=== PATIENT | female | born 1985 | race Caucasian/White ===

== ENCOUNTER 2025-02-08 07:16 | Outpatient (REF) | payer MEDICAID, SELFPAY ==
[2025-02-08 13:28] LABS: MANUAL DIFF FLAG NO
[2025-02-08 13:47] LABS: Hematocrit 36.4 % (37.0-47.0); Hemoglobin 11.9 g/dl (12.0-16.0); Imm Gran Abs Auto 0.03 X10*3/uL (0.00-0.03); Imm Gran Pct Auto 0.4 % (0.0-0.4); Lymphocytes Absolute Auto 2.2 X10*3/uL (1.2-4.9); Mean Corpuscular HGB Conc 32.7 g/dl (31.0-35.0); Mean Corpuscular Hemoglobin 29.2 pg (27.0-33.0); Mean Corpuscular Volume 89.4 fL (80.0-98.0); NRBC Abs Auto 0.000 X10*3/uL (0.0-0.012); NRBC Pct Auto 0.0 /100WBC (0.0-0.2); Platelet Count 304 X10*3/uL (160-400); Red Blood Count 4.07 X10*6/uL (4.20-5.50); White Blood Count 6.8 X10*3/uL (4.8-10.8)
[2025-02-08 14:11] LABS: Alanine Aminotransferase 20 U/L (0-31); Albumin Level 4.0 g/dL (3.5-5.0); Alkaline Phosphatase 42 U/L (39-117); Anion Gap 12 (12-20); Aspartate Amino Transferase 24 U/L (5-31); Blood Urea Nitrogen 16 mg/dL (9-16); Calcium 9.3 mg/dL (8.4-10.2); Carbon Dioxide 26 mmol/L (22-29); Chloride 108 mmol/L (96-108); Estimated Glomerular Filt Rate > 60; Ferritin 31 ng/mL (10-250); Potassium 4.8 mmol/L (3.3-5.1); Sodium 141 mmol/L (135-145); Total Protein 7.1 g/dL (6.5-8.0)
[2025-02-08 14:26] LABS: Folate 10.7 ng/mL (> or = 4.0); Vitamin B12 224 pg/mL (200-900)
[2025-02-09 10:44] LABS: Anti Nuclear Antibody Screen NEGATIVE (NEGATIVE)
[2025-02-13 12:33] LABS: CK-BB None Detected (None Detected); CK-MB 0 % (<5); CK-MM 100 % (95-100); Creatine Kinase,Total,Serum 26 U/L (20-239); Vitamin D 25-OH, D2 <4 ng/mL; Vitamin D 25-OH, D3 17 ng/mL; Vitamin D 25-OH, Total 17 ng/mL (30-100)
== END 2025-02-08 07:17 | disposition home or self-care (01) ==
LOC: HO.HKASLDS 07:16
PROVIDERS: PCP Physician Assistant Medical; Visit Provider Psychiatry & Neurology Neurology
DX: M62.838 Other muscle spasm (principal); G47.10 Hypersomnia, unspecified; R06.83 Snoring
CPT/HCPCS: 36415; 80053; 82306; 82552; 82607; 82728; 82746; 84443; 85025; 85652; 86038; 99202

== ENCOUNTER 2025-02-08 07:16 | Outpatient (AMB) | payer MEDICAID, SELFPAY ==
--- OUTSIDE RECORDS SUMMARY | 2025-02-08 07:18 | XMS_ITS | Clinical Summary ---
Author Organization [facility] Address [address] [place] [address] Care Team Providers Care Waxer Name Role Phone Unavailable Primary Care Provider Unavailabl e Encounters Date Type Department Care Team Description 12/12/2024 Population Health Risk Score [facility] (C3) Department [address] [facility] [address] [place] [address] Provider, Population Health Generic from Last 3 Months Social History Tobacco Use Types Packs/Day Years Used Date Smoking Tobacco: Never Assessed Comments Unknown Sex and Gender Information Value Date Recorded Sex Assigned at Not on file Legal Sex Female 9:32 PM EDT Gender Identity Not on file Sexual Orientation Not on file Plan of Treatment Health Maintenance Due Date Last Done Comments Depression Screening 1984 Lipid Panel 1984 SDOH Screening 1984 Disability Screening 1984 Alcohol/Substance Use Screening 1996 Tobacco Screening 1996 Family Planning (PISQ) 10/26/1999 HPV Vaccines (1 - 3-dose series) 10/26/1999 Hepatitis C Screening 2002 Pap Smear 2005 Cervical Cancer Screening 2014 HPV/Cotest 2014 Mammogram 2024 COVID-19 Vaccine ( - 2023-2 5 season) 2025 Influenza Vaccine (#1) 2025 DTaP/Tdap/Td Vaccines (2 - T d or Tdap) 03/26/2032 03/26/2022 Zoster Vaccines (1 of 2) 2034 RSV Patients and Patients Aged 60 years or older (1 - 1-dose 75+ series) 10/26/2059 HIV Screening Completed 01/02/2019 Hepatitis B Vaccines Completed 03/26/2022, 04/23/2017, 08/27/2016 HIB Vaccines Aged Out No longer eligi ble based on patient's age to complete this topic Hepatitis A Vaccines Aged Out No long er eligible based on patient's age to complete this topic IPV Vaccines Aged Out No longer eligi ble based on patient's age to complete this topic Meningococcal B Vaccine Aged Out No l onger eligible based on patient's age to complete this topic Meningococcal Vaccine Aged Out No sanjiv grant eligible based on patient's age to complete this topic Pneumococcal Vaccine: Pediatrics (0 to 5 Years) and At-Risk Patients (6 to 49) Years Aged Out No longer eligible b ased on patient's age to complete this topic RSV under 20 months Aged Out No longe r eligible based on patient's age to complete this topic Rotavirus Vaccines Aged Out No longer eligible based on patient's age to complete this topic
--- OUTSIDE RECORDS SUMMARY | 2025-02-08 07:18 | XMS_ITS | Clinical Summary ---
Author Organization [facility] Address [address] [place] [address] Care Team Providers Care Cutting Table Operator First Name Role Phone Henna Qureshi PA-C Primary Care Provider [phone] Source Comments PLEASE NOTE, if this patient is a minor, it may be UNLAWFUL to discuss sensitive information that is contained in these records (such as FAMILY PLANNING, MENTAL HEALTH or SUBSTANCE ABUSE) with the minor patient's parent or other person without the patient's specific authorization.[facility] Allergies No known active allergies Medications meclizine 25 mg chewable tabletIndication s:Dizziness Place 1 Tablet into mouth, chew and swallow 3 (three) times daily as needed for nausea 30 Tablet 1 2 Active diclofenac sodium (VOLTAREN) 1 % gelIndications:C hronic right-sided low back pain with right-sided sciatica,Acute bilateral low back pain without sciatica Apply 2 gm topically two to three times per day to affected area as needed for pain relief 100 g 1 2 Active cyclobenzaprine (FLEXERIL) 10 mg tabletIndication s:Degenerative disc disease, lumbar,Lumbar disc herniation Take 1 Tablet by mouth 3 (three) times daily as needed for muscle spasms 90 Tablet 2 Active docusate sodium (COLACE) 100 mg capsuleIndicatio ns:Alternating constipation and diarrhea Take 1 Capsule by mouth 2 (two) times daily 180 Capsule 3 Active polyethylene glycol, PEG, 3350 (GLYCOLAX) 17 gram/dose powderIndication s:Alternating constipation and diarrhea Take 17 g by mouth once daily as needed for other reason (constipation) 510 g 3 Active hydrocortisone 1 % creamIndications :Bleeding hemorrhoid Apply topically 2 (two) times daily 30 g 3 Active dicyclomine (BENTYL) 10 mg capsuleIndicatio ns:Abdominal bloating with cramps Take 1 Capsule by mouth 4 (four) times daily before meals and nightly 180 Capsule 1 3 Active docusate sodium (COLACE) 100 mg capsuleIndicatio ns:Alternating constipation and diarrhea Take 1 Capsule by mouth 2 (two) times daily as needed for constipation 180 Capsule 3 Active polyethylene glycol, PEG, 3350 (GLYCOLAX) 17 gram/dose powderIndication s:Alternating constipation and diarrhea Take 17 g by mouth once daily 510 g 3 Active ipratropium (ATROVENT) 42 mcg (0.06 %) nasal spray See Admin Instructions 3 Active medroxyPROGESTER one (DEPO-PROVERA) 150 mg/mL injection Inject 150 mg into the muscle every 3 (three) months 3 Active benzonatate (TESSALON) 200 mg capsuleIndicatio ns:Subacute cough Take 1 Capsule by mouth 3 (three) times daily as needed for cough 30 Capsule 4 Active methocarbamoL (ROBAXIN) 750 mg tabletIndication s:Muscle spasm Take 1 Tablet by mouth every evening 30 Tablet 4 Active ascorbic acid (VITAMIN C) 500 mg tabletIndication s:Iron deficiency Take 1 Tablet by mouth once daily 90 Tablet 1 4 Active pantoprazole (PROTONIX) 20 mg EC tablet TAKE 1 TABLET BY MOUTH EVERY DAY 90 Tablet 1 4 Active omeprazole (PRILOSEC) [address] capsuleIndicatio ns:Gastroesophag eal reflux disease without esophagitis TAKE 1 CAPSULE BY MOUTH EVERY DAY IN THE MORNING BEFORE BREAKFAST 90 Capsule 1 5 Active ferrous sulfate 325 mg (65 mg iron) tabletIndication s:Abnormal iron saturation TAKE 1 TABLET BY MOUTH ONCE DAILY WITH BREAKFAST 90 Tablet 1 5 Active ibuprofen 800 mg tabletIndication s:Chronic right-sided low back pain with right-sided sciatica,Acute bilateral low back pain without sciatica TAKE 1 TABLET BY MOUTH THREE TIMES A DAY NEEDED FOR PAIN 90 Tablet 1 5 Active phentermine (IONAMIN) 30 mg capsuleIndicatio ns:BMI 38.0-38.9,adult Take 1 Capsule by mouth every morning. Max Daily Amount: 30 mg 30 Capsule 5 Active Active Problems Problem Noted Date Diagnosed Date Severe obesity (CMS & HHS-HCC) 03/17/2024 Irregular bowel habits 03/17/2024 BRBPR (bright red blood per rectum) 03/17/2024 Degenerative disc disease, lumbar 03/26/2022 Lumbar disc herniation 03/26/2022 Anxiety and depression 03/19/2021 Psychophysiological insomnia 03/19/2021 Thyroid cyst 01/03/2020 Overview (01/03/2020): 12/2019: recent neck ultrasound showing an enlarged right thyroid lobe (in the upper limits of normal) and a tiny cyst in the left lobe. Ultrasound was ordered because pt reported 3 month hx of difficulty swallowing and sensation of constriction in her throat which causes SOB; also seen by ENT and s/p EGD on 12/19; referred to Endo Gastroesophageal reflux disease without esophagi tis 01/06/2019 Chronic right-sided low back pain with right-elsy ed sciatica 01/06/2019 Overview (11/17/2021): [facility] 11/03/21: PT referral and follow up in 3 months Obesity (BMI 30.0-34.9) 10/08/2014 Resolved Problems Problem Noted Date Diagnosed Date Resolved Date Acute bilateral low back vazquez n without sciatica 10/15/2021 12/30/2022 COVID-19 01/03/2020 12/30/2022 Overview (01/03/2020): COVID-19 Tracking [reviewed or updated 01/03/2020] Exposure to confirmed case or travel risk - No Date that symptoms began - 12/20/19 Patient risk factors for severe COVID-19: None Healthcare worker or front office help? No COVID-19 Tested? - Yes - Date Tested 12/25/19 Testing Location - [facility] - Testing Results - Positive Is patient ? No Enlarged thyroid 01/03/2020 12/30/2022 Overview (01/03/2020): 12/2019: recent neck ultrasound showing an enlarged right thyroid lobe (in the upper limits of normal) and a tiny cyst in the left lobe. Ultrasound was ordered because pt reported 3 month hx of difficulty swallowing and sensation of constriction in her throat which causes SOB; also seen by ENT and s/p EGD on 12/19; referred to Endo Back pain 12/30/2022 Encounters Date Type Department Care Team Description 01/31/2025 7:40 AM EDT Telemedicine Visit [facility] [address] [place] [address] Henna Qureshi PA-C 11/15/2024 7:40 AM EDT Telemedicine Visit [facility] [address] [place] [address] Henna Qureshi PA-C from Last 3 Months Immunizations Immunization Administration Dates Next Due HEP B,ADULT 04/23/2017,08/27/2016 Hep B,adult,adjuvanted (HEPLISAV) 03/26/2022 MMR (MMR II/Priorix) 04/23/2017,08/27/2016 TDAP 03/26/2022 Family History Medical History Relation Name Comments No Known Problems Brother 2 No Known Problems Daughter Hypertension Father Heart Problems Maternal Grandfather No Known Problems Maternal Grandmother Hypertension Maternal Uncle No Known Problems Mother Heart Problems Paternal Grandfather Cancer Paternal Grandmother No Known Problems Son Relation Name Status Comments Brother 1 Alive Brother 2 Alive Daughter Alive Father Alive Maternal Grandfather Maternal Grandmother Alive Maternal Uncle Mother Alive Paternal Grandfather Paternal Grandmother Son Alive Social History Tobacco Use Types Packs/Day Years Used Date Smoking Tobacco: Former Cigarettes Passive Smoke Exposure: Never Smokeless Tobacco: Never Tobacco Cessation:Counseling Given: Not Answered Comments:10> yrs ago Alcohol Use Standard Drinks/Week Comments Not Currently 0 (1 standard drink = 0.6 oz pur e alcohol) Social Connections Answer Date Recorded How often do you feel lonely or isolated from th ose around you? 1 03/28/2024 Financial Resource Strain Answer Date R ecorded Hard to pay for: Food 1 03/28/2024 Stress Answer Date Recorded Do you feel these kinds of stress these days? 1 03/28/2024 Physical Activity Answer Date Recorded Physical Activity 0 01/10/2019 Food Insecurity Answer Date Recorded Hard to pay for: Food 1 03/28/2024 Transportation Needs Answer Date Record ed Hard to pay for: Transportation 1 03/28/2024 Housing Stability Answer Date Recorded Hard to pay for: Rent/Mortgage payment 1 03/28/2024 Safety and Environment Answer Date Sajan rded How often does anyone, inclu ding family and friends, physically hurt you? 1 11/15/2024 Utilities Answer Date Recorded Hard to pay for: Utilities 1 03/28 Employment Answer Date Recorded Stress 0 08/11/2021 Comments No Sex and Gender Information Value Date Recorded Sex Assigned at Female 01/06/2019 6:31 PM PDT Legal Sex Female 7:04 AM PDT Gender Identity Female 01/06/2019 6:31 PM PDT Sexual Orientation Straight 01/06/2019 6: 31 PM PDT Last Filed Vital Signs Vital Sign Reading Time Taken Comments Blood Pressure 108/72 03/28/2024 9:23 AM EST Pulse 86 03/28/2024 9:23 AM EST Temperature 37 C (98.6 F) 03/28/2024 9:23 AM EST Respiratory Rate 16 03/28/2024 9:23 AM EST Oxygen Saturation 96% 03/28/2024 9:23 AM EST Inhaled Oxygen Concentration - - Weight 95.3 kg (210 lb) 01/31/2025 7:50 AM EDT Height 157.5 cm (5' 2 ) 01/31/2025 7:50 AM EDT Body Mass Index 38.41 01/31/2025 7:50 AM EDT Plan of Treatment Upcoming Encounters Date Type Department Care Team (Late st Contact Info) Description 03/09/2025 11:40 AM EDT Office Visit [facility] [address] [place] [phone] Henna Qureshi PA-C [address] [place] [address] 03/19/2025 9:40 AM EDT Office Visit [facility] [address] [place] [phone] Apoorva Butler [address] [place] [address] Health Maintenance Due Date Last Done Comments HPV Screening 1984 Imm-HPV (1 - 3-dose SCDM series) 10/26/2011 [id number] INJ 03/08/2023 12/14/2022 Annual Wellness (Adult): Indicated (All Coverage) 05/05/2024 05/05/2023, 04/22/2022 Cervical Cancer Screening 06/01/2024 Pap + HPV 06/01/2024 06/01/2023 Breast Cancer Screening (Mammogram) 2024 Dental BW 11/03/2024 11/02/2023, 05/26/2022 Dental Examination 11/03/2024 11/02/2023, 05/26/2022 Dental Perio Charting 11/03/2024 11/02/2023 Dental Prophy 11/03/2024 11/02/2023, 05/26/2022 [id number] ( season) 2025 07/16/2021, 02/10/2021, 01/20/2021 Imm-Influenza (#1) 2025 Depression Monitoring 02/15/2025 11/15/2024 , 03/28/2024, 03/15/2024, Additional history exists Anxiety Screening 03/28/2025 03/28/2024 Hypertension Screening (#1) 03/28/2025 Tobacco Screening 03/28/2025 03/28/2024 Relationship Safety Screening/Counseling 11/15/2025 11/15/2024, 05/05/2023, 10/15/2021, Additional history exists Pap Smear 06/01/2026 06/01/2023 Lipid Screening 12/29/2026 12/30/2023, 03/26, 01/02/2019, Additional history exists Diabetes Screening 03/28/2027 03/28/2024, 0 12/24/2023, 12/30/2022, Additional history exists Dental FMX/Pano 05/28/2027 05/26/2022 Imm-DTaP/Tdap/Td (2 - Td or Tdap) 03/26/2032 022 HIV Screening Completed 01/02/2019 Imm-Hepatitis B Completed 03/26/2022, 1205/2016, 08/27/2016 Hepatitis C Screening Completed 04/22/2022 Alcohol and Drug Screen Completed 11/16/19, 03/28/2024, 03/15/2024, Additional history exists Cervical Ablation/Cold-Knife Conization Discontinued Cervical Cryotherapy Discontinued Colposcopy Discontinued Endometrial Biopsy Discontinued Excision/Leep Discontinued HPV Genotyping Discontinued Vaginal Pap Discontinued Vulvoscopy Discontinued Procedures Procedure Name Priority Date/Time Associated Diagnosis Comments COMPREHENSIVE METABOLIC PANEL Routine 03/28/2024 10:12 AM EST Elevated ALT measurement Low iron Mixed hyperlipidemia LIPID PANEL Routine 12/30/2023 11:10 AM EDT Mixed hyperlipidemia COMP PERIODONTAL EVALUATION - NEW/EST PATIENT Routine 11/02/2023 4:20 PM EDT Chronic gingivitis, plaque induced Encounter for dental examination and cleaning without abnormal findings BITEWINGS - FOUR RADIOGRAPHIC IMAGES Routine 11/02/2023 4:20 PM EDT Chronic gingivitis, plaque induced Encounter for dental examination and cleaning without abnormal findings PROPHYLAXIS - ADULT Routine 11/02/2023 4 :20 PM EDT Chronic gingivitis, plaque induced Encounter for dental examination and cleaning without abnormal findings PERIODIC ORAL EVALUATION ESTABLISHED PATIENT Routine 11/02/2023 4:20 PM EDT Chronic gingivitis, plaque induced Encounter for dental examination and cleaning without abnormal findings PAP W/ HPV 06/01/2023 3:00 AM EST INTRAORAL - COMP SERIES OF RADIOGRAPHIC IMAGES Routine 05/26/2022 11:00 AM EST Encounter for dental examination HEPATITIS C AB W/RFLX HCV RNA, QT, RT PCR Routine 04/22/2022 9:08 AM EST Encounter for annual physical exam ANTIBODY HIV-1&HIV-2 SINGLE RESULT Routine 01/02/2019 2:50 PM EDT Fatigue, unspecified type from Last 3 Months or Most Recently Relevant to Health Maintenance Results * (ABNORMAL) COMPREHENSIVE METABOLIC PANEL (03/28/2024 10:12 AM EST) GLUCOSE 108(H) 65 - 99 mg/dL [facility] Comment: Fasting reference interval For someone without known diabetes, a glucose value between 100 and 125 mg/dL is consistent with prediabetes and should be confirmed with a follow-up test. UREA NITROGEN (BUN) 13 7 - 25 mg/dL [facility] CREATININE (blood) 0.69 0.50 - 0.97 mg/dL [facility] EGFR 113 > OR = 60 mL/min/1. 73m2 [facility] BUN/CREATININE RATIO SEE NOTE: [facility] Comment: Not Reported: BUN and Creatinine are within reference range. SODIUM 141 135 - 146 mmol/L [facility] POTASSIUM 4.2 3.5 - 5.3 mmol/L [facility] CHLORIDE 108 98 - 110 mmol/L [facility] CARBON DIOXIDE 29 20 - 32 mmol/L [facility] CALCIUM 9.3 8.6 - 10.2 mg/dL [facility] PROTEIN, TOTAL 6.8 6.1 - 8.1 g/dL [facility] ALBUMIN 4.2 3.6 - 5.1 g/dL [facility] GLOBULIN 2.6 1.9 - 3.7 g/dL (calc) [facility] ALBUMIN/GLOBULI N RATIO 1.6 1.0 - 2.5 (calc) [facility] BILIRUBIN, TOTAL 0.3 0.2 - 1.2 mg/dL [facility] ALKALINE PHOSPHATASE 47 31 - 125 U/L [facility] AST 11 10 - 30 U/L [facility] ALT 13 6 - 29 U/L [facility] Blood Blood / Unknown 03/28/2024 1 0:12 AM EST 03/28/2024 10:12 AM EST Narrative [facility] - 03/29/2024 4:15 AM EST MULTIPLE TESTING PRIORITIES; ROUTINE TESTING TO FOLLOW. us Henna Qureshi PA-C LAB - BLOOD DRAW Edited Resu lt - Final [facility] [address] [address], [facility] [address] [address] * (ABNORMAL) LIPID PANEL (12/30/2023 11:10 AM EDT) CHOLESTEROL, TOTAL 218(H) <200 mg/dL [facility] HDL CHOLESTEROL 57 > OR = 50 mg/dL [facility] TRIGLYCERIDES 120 <150 mg/dL [facility] LDL-CHOLESTEROL 137(H) 99 mg/dL (calc) [facility] Comment: Reference range: <100 Desirable range <100 mg/dL for primary prevention; <70 mg/dL for patients with CHD or diabetic patients with > or = 2 CHD risk factors. LDL-C is now calculated using the Nura calculation, which is a validated novel method providing better accuracy than the Friedewald equation in the estimation of LDL-C. Ben SS et al. PRINCESS. 2013;310(19): 4279-6374 (http://education.[employer]eg[employer] Lightwave/faq/ZXC237) CHOL/HDLC RATIO 3.8 <5.0 (calc) [facility] NON-HDL CHOLESTEROL 161(H) <130 mg/dL (calc) [facility] Comment: For patients with diabetes plus 1 major ASCVD risk factor, treating to a non-HDL-C goal of <100 mg/dL (LDL-C of <70 mg/dL) is considered a therapeutic option. Blood Blood / Unknown 12/30/2023 1 1:10 AM EDT 12/30/2023 11:10 AM EDT Narrative [facility] - 12/31/2023 5:46 AM EDT FASTING:NO us Henna Qureshi PA-C LAB - BLOOD DRAW Final Resul t [facility] [address] [address], [facility] [address] [address] * PAP W/ HPV (06/01/2023 3:00 AM EST) 06/01/2023 3:00 AM EST us Henna Qureshi PA-C LAB - PATHOLOGY AND CYTOLOGY AMBULATORY Edited Result - Final * Hep C Ab w/Rflx (04/22/2022 9:08 AM EST) HEPATITIS C ANTIBODY NON-REACT MAUREEN NON-REACT MAUREEN [facility] SIGNAL TO CUT-OFF 0.08 <1.00 [facility] Comment: HCV antibody was non-reactive. There is no laboratory evidence of HCV infection. In most cases, no further action is required. However, if recent HCV exposure is suspected, a test for HCV RNA (test code 24396) is suggested. For additional information please refer to http://education.[employer]CI Com/faq/GZC62e8 (This link is being provided for informational/ educational purposes only.) Blood Blood / Unknown 04/22/2022 9 :08 AM EST 04/22/2022 9:09 AM EST Narrative [facility] - 04/22/2022 9:21 PM EST FASTING:YES Cuca Crow PA-C LAB - BLOOD DRAW Edited Resu lt - Final [facility] [address] [address], [facility] [address] [address] * HIV-1 & HIV-2 ANTIBODIES (01/02/2019 2:50 PM EDT) HIV 1 AND 2 ANTIBODY SCREEN NEGATIVE NEGATIVE [employer] [facility] Comment: This assay is a 4th generation assay allowing for earlier detection of HIV infection by detecting the presence of the HIV-1 p24 antigen as well as the traditional antibodies to HIV type 1 (including group O) and type 2. Use of a 4th generation assay is the current CDC recommendation for HIV screening. Blood specimen (specimen) Blood / Unknown 01/02/2019 2:50 PM EDT 01/02/2019 2:55 PM EDT Narrative [employer] - 01/02/2019 7:47 PM EDT [employer], a member of [address] [place] [address] Maintenance Helper - Mary Hollingsworth MD PT ID [id number] ORD# [id number] Cristina Shah [employer] LAB - BLOOD DRAW Final Result [facility] [address] [place] [address], [place] [phone] from Last 3 Months or Most Recently Relevant to Health Maintenance Insurance [place] [facility] [address] [employer] Care Teams Cutting Table Operator First Relationship Specialty Start Date End Date Henna Qureshi PA-C [address] [place] [address] PCP - General FAMILY MEDICINECOLLIN 08/04/23
--- OUTSIDE RECORDS SUMMARY | 2025-02-08 07:18 | XMS_ITS | Clinical Summary ---
Author Organization [facility] Address [address] [place] [id number] Phone Care Team Providers Care Programming Specialist Name Role Phone Henna Qureshi Primary Care Provider [phone] Allergies No known active allergies Medications acetaminophen (TYLENOL 8 HOUR) 650 mg 8 hr tablet Take 1 Tab by mouth every 8 hours as needed. Active albuterol HFA (PROAIR HFA ; PROVENTIL HFA ; VENTOLIN HFA) 90 mcg/actuation inhaler Inhale 2 Puffs into the lungs See Admin Instructions. Every 4 to 6 hours as needed Active cholecalciferol (VITAMIN D-3) 1,250 mcg (50,000 unit) capsule Take by mouth. Active citalopram (CeleXA) 20 mg tablet Take 1 Tab by mouth daily. Active diclofenac (Voltaren) 1 % topical gel Place 2 g onto the skin 2 times daily as needed. Apply to affected area Active fluticasone HFA (FLOVENT HFA) 110 mcg/actuation inhaler Inhale 1 Puff into the lungs 2 times daily. Rinse mouth after each use Active melatonin 5 mg capsule Take 1 capsule by mouth at bedtime as needed. Active Active Problems Problem Noted Date Diagnosed Date Anxiety 02/09/2020 Chronic low back pain 03/13/2019 GERD (gastroesophageal reflux disease) 9 Rectal bleed 02/17/2019 Immunizations Name Administration Dates Next Due Hepatitis B (Ypogwxz-B-Smxoq , Recombivax HB-Adult) 19yo and older 04/23/2017,08/27/2016 MMR, measles mumps and rubel la Live (Priorix; M-M-R II) 12mo and older 04/23/2017,08/27/2016 Surgical History Surgery Date Site/Laterality Comments WISDOM TOOTH EXTRACTION PROCEDURE: HISTORICAL WISDOM TEETH EXTRACTION Medical History Medical History Date Comments Rectal bleed 02/17/2019 DX:Rectal bleed Chronic low back pain 03/13/2019 DX:Chronic low back pain GERD (gastroesophageal reflu x disease) 03/13/2019 DX:GERD (gastroesophageal re flux disease) Anxiety 02/09/2020 DX:Anxiety Family History Medical History Relation Name Comments Hypertension Father Coronary artery disease Maternal Grandfather Hypertension Mother's side maternal Uncle Coronary artery disease Paternal Grandfather Other cancer Paternal Grandmother Relation Name Status Comments Father Alive Maternal Grandfather Maternal Grandmother Alive Mother Alive Mother's side maternal Alive Paternal Grandfather Paternal Grandmother Social History Tobacco Use Types Packs/Day Years Used Date Smoking Tobacco: Former Smokeless Tobacco: Never Alcohol Use Standard Drinks/Week Comments Yes 0 (1 standard drink = 0.6 oz pur e alcohol) Comments Unknown Sex and Gender Information Value Date Recorded Sex Assigned at Not on file Legal Sex Female 11:29 PM EST Gender Identity Not on file Sexual Orientation Not on file Obstetrics History Plan of Treatment Health Maintenance Due Date Last Done Comments Breast Cancer Screening 1984 DTaP,Tdap,and Td Vaccines (1 - Tdap) 10/26/2003 Cervical Cancer Screening: P ap Smear 2005 Hepatitis B Vaccines (3 of 3 - 19+ 3-dose series) 06/18/2017 04/23/2017, 08/27/2016 HIV Screening 04/26/2022 Hepatitis C Screening 04/26/2022 Social Influencers of Health Screening 04/26/2022 Depression Screening 05/24/2024 COVID-19 Vaccine ( - 2023-2 5 season) 2025 Influenza Vaccine (#1) 2025 MMR Vaccines Aged Out 04/23/2017, 08/27/2016 No longer eligible based on patient's age to complete this topic HIB Vaccines Aged Out No longer eligi ble based on patient's age to complete this topic HPV Vaccines Aged Out No longer eligi ble based on patient's age to complete this topic Hepatitis A Vaccines Aged Out No long er eligible based on patient's age to complete this topic IPV Vaccines Aged Out No longer eligi ble based on patient's age to complete this topic Meningococcal ACWY Vaccine Aged Out N o longer eligible based on patient's age to complete this topic Meningococcal B Vaccine Aged Out No l onger eligible based on patient's age to complete this topic Pneumococcal Vaccine: Pediatrics (0 to 5 Years) and At-Risk Patients (6 to 49 Years) Aged Out No longer eligible b ased on patient's age to complete this topic RSV Immunization Patients Under 20 months Aged Out No longer eligible b ased on patient's age to complete this topic Varicella Vaccines Aged Out No longer eligible based on patient's age to complete this topic Insurance MEDICAID - [place] Care Teams Programming Specialist Relationship Specialty Start Date End Date Henna Qureshi PA [address] [place] [address] PCP - General 04/05/24
--- NOTE | 2025-02-08 07:26 | A.OFFVIS_ITS ---
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 she reports muscles spasms in her LE and UE , trunk face etc that started 1 year ago.she denies pain associated with it . The spasms are present throughout the day - started in left knee. when she is moving she feels she is distracted and pedraza snot bother her. It does not wake her up form sleep. she is not sure if its more in the evenings or at rest or if movement helps. she has herniated disc in her back and has back pain. she feels she does not breath well when she sleeps , has a soft snore, constantly congested, has excessive daytime sleepiness and fatigue. she also reports some sensory symptoms and feels fidgety in the evenings [facility] Medical History (Updated 02/08/25 @ 08:01 by Carola Roche MD) Hypersomnia Snoring Muscle spasm Mixed hyperlipidemia Polydipsia Numbness and tingling of left thumb Weakness of left shoulder Body mass index [BMI] 37.0-37.9, adult Infectious mononucleosis, unspecified without complication Low iron Chronic pain of multiple joints Elevated ALT measurement Physical Exam Vital Signs: Last Vital Signs Pulse 73 02/08/25 07:28 BP 120/78 02/08/25 07:28 Pulse Ox 98 02/08/25 07:28 Oxygen Delivery Method Room Air 02/08/25 07:28 BMI result Body Mass Index 38.9 Const General: cooperative, healthy appearing, comfortable, no acute distress and anxious Nutritional Appearance: obese Orientation/consciousness: patient oriented x3 Eyes Pupils: Equal, round and reactive pupils present Neuro General: patient oriented x3, gait normal, tone normal, moves all extremities and no focal motor deficits Cranial nerves: Yes Facial sensation intact/muscles of mastication intact, Yes Equal, round and reactive pupils present, Yes Bilaterally intact EOM present, Yes Nystagmus not present, Yes Normal facial strength present, Yes Midline tongue present, Yes Symmetric palate elevation present and Yes Ability to bilaterally elevate shoulders present Cognition (Neuro): normal cognition Gait exam (Neuro): Normal gait present Motor exam (neuro): 5/5 motor strength present throughout and Normal motor mus demetrio tone present throughout Deep tendon reflexes (DTR's): Right triceps reflex intensity grade: 1+, Left triceps reflex intensity grade: 1+, Rt Biceps (C5, C6): 1+, Left biceps reflex intensity grade: 1+, Right brachioradialis reflex intensity grade: 1+, Left brachioradialis reflex intensity grade: 1+, Right patellar reflex intensity grade: 1+ and Left patellar reflex intensity grade: 1+ Coordination: [id number] test normal Assessment & Plan Assessment & Plan (1) Muscle spasm: Comment: PLMS ? RLS Code(s): - Other muscle spasm Category: Medical (2) Snoring: Code(s): R06.83 - Snoring Category: Medical (3) Hypersomnia: Code(s): G47.10 - Hypersomnia, unspecified Category: Medical Plan I will evaluate her with sleep study to r/o sleep apnea and PLMD MRI report from [facility] Labs- Vit B 12 , D , TSH , Ferritin, CBC CMP EMG NCS LE Orders: Orders Vitamin B12 and Folate Today - Other muscle spasm Comprehensive Met. Panel Today M6.83 - Other muscle spasm Complete Blood Count Auto Diff Today - Other muscle spasm SARABJIT Reflex Titer and Pattern Today - Other muscle spasm CK, Total+Isoenzymes, Serum Today M6 - Other muscle spasm TSH reflex Free T4 Today M6.83 - Other muscle spasm Vitamin D 25-OH (D2 and D3) Today M6. - Other muscle spasm Erythrocyte Sedimentation Rate Today . - Other muscle spasm Ferritin Today M6.83 - Other muscle spasm NE nerve conduction velocity Today M6.83 - Other muscle spasm NE electromyogram (EMG) Today M6.838 - Other muscle spasm RT PSG in-lab sleep study Today G47.10 - Hypersomnia, unspecified, . - Other muscle spasm, R06.83 - Snoring Coding Level of Care Code New Pt Level 4 (51941) Complex EM visit Add On G2211 Diagnoses Muscle spasm M62.838 Snoring R06.83 Hypersomnia G47.10
[2025-02-08 07:28] VITALS: BP 120/78; PULSE 73; O2SAT 98; BMI 38.9
== END 2025-02-08 08:11 | disposition home or self-care (01) ==
LOC: HO.HSMS 07:17
PROVIDERS: PCP Physician Assistant Medical; Visit Provider Psychiatry & Neurology Neurology
DX: M62.838 Other muscle spasm (principal); R06.83 Snoring; G47.10 Hypersomnia, unspecified
CPT/HCPCS: 99204

== ENCOUNTER 2025-03-20 08:57 | Outpatient (REF) | payer MEDICAID, SELFPAY ==
--- NOTE | 2025-03-20 08:59 | EMG_ITS ---
Chief complaint: Left lower extremity and right upper muscle spasms Reason for referral: M62.838 lower extremity left and right upper muscle spasms Referred by: Carola Roche MD Procedure done: NCS left lower and right upper with EMG Right median and ulnar motor studies were performed. Right radial sensory and median and lateral antecubital brachial sensory studies were performed. Left peroneal and tibial motor studies were performed with F responses. Tibial H- reflex was obtained. Left superficial peroneal and sural sensory study were performed Findings: Right upper extremity nerve conduction studies were with a normal range. Left superficial peroneal sensory study revealed minimal amplitude and slow conduction velocity. Left peroneal motor amplitude was significantly diminished with significant slowing across the fibular head. Impression: 1. Unremarkable right upper extremity study 2. 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
--- OUTSIDE RECORDS SUMMARY | 2025-03-20 09:53 | XMS_ITS | Clinical Summary ---
Author Organization [facility] Address [address] [place] [phone] Phone Care Team Providers Care Elderly Sitter Name Role Phone Henna Qureshi Primary Care Provider [phone] Allergies No known active allergies Medications acetaminophen [...] reflux disease) 9 Rectal bleed 02/17/2019 Immunizations Immunization Administration Dates Next Due Hepatitis B (Swmqyzj-G-Poktf , Recombivax HB-Adult) 19yo and older 04/23/2017,08/27/2016 [...] Cervical Cancer Screening: P ap Smear 2005 HPV Vaccines (1 - 3-dose SCD M series) 10/26/2011 Hepatitis B Vaccines (3 of 3 - 19+ 3-dose series) 06/18/2017 04/23/2017, 08/27/2016 HIV Screening 04/26/2022 Hepatitis C Screening 04/26/2022 Social Influencers of Health Screening 04/26/2022 Depression Screening 05/24/2024 COVID-19 Vaccine ( - 2023-2 5 season) 2025 Influenza Vaccine (#1) 2025 RSV Immunization Adult Patients (1 - 1-dose 75+ series) 10/26/2059 MMR Vaccines Aged Out 04/23/2017, 08/27/2016 No [...] topic Insurance MEDICAID - [place] Care Teams Elderly Sitter Relationship Specialty Start Date End Date Henna Qureshi PA [address] [place] [address] PCP - General 04/05/24
--- OUTSIDE RECORDS SUMMARY | 2025-03-20 09:53 | XMS_ITS | Clinical Summary ---
Author Organization [employer] Address [address] [place] [address] [address] [place] [address] Care Team Providers Care Nurse Sane Name Role Phone Unavailable Primary Care Provider Unavailabl e Social History Tobacco Use Types Packs/Day Years [...]
== END 2025-03-20 08:58 | disposition home or self-care (01) ==
LOC: HO.NEURO 08:57
PROVIDERS: PCP Physician Assistant Medical; Visit Provider Psychiatry & Neurology Neurology
DX: M62.838 Other muscle spasm (principal)
CPT/HCPCS: 95886; 95912

== ENCOUNTER → 2025-03-20 08:59 | Outpatient (BNV) | payer MEDICAID, SELFPAY | PROVIDERS: PCP Physician Assistant Medical; Visit Provider Psychiatry & Neurology Neurology | DX: G62.89 Other specified polyneuropathies (principal) | CPT/HCPCS: 95886; 95913 ==